=== PATIENT | female | born 1940 | race Caucasian/White ===

== ENCOUNTER 2023-03-02 11:10 | Inpatient (IN) | payer MEDICARE, OTHER ==
[~2023-03-02] VITALS: Ht 152.4 cm; Wt 56.2 kg
[2023-03-02 12:08] LABS: BASOPHILS % (AUTO) 0.5 % (0.0-2.0); EOSINOPHILS # (AUTO) 0.1 K/uL (0.0-0.7); EOSINOPHILS % (AUTO) 1.1 % (0.0-6.0); HEMATOCRIT 35 % (33-45); LYMPHOCYTES # (AUTO) 0.9 K/uL (0.8-4.8); MEAN CORPUSCULAR HEMOGLOBIN 30 PG (26.0-33.0); MEAN CORPUSCULAR HGB CONC 35 g/dl (31.0-36.0); MEAN CORPUSCULAR VOLUME 86 fL (82-100); MONOCYTES # (AUTO) 0.8 K/uL (0.1-1.30); MONOCYTES % (AUTO) 9.8 % (2.0-12.0); NEUTROPHILS # (AUTO) 6.5 K/uL (1.8-8.9); NEUTROPHILS % (AUTO) 77.6 % (43.0-81.0); PLATELET COUNT (AUTO) 344 K/uL (150-450); RED CELL DISTRIBUTION WIDTH 13.3 % (11.5-15.0); WHITE BLOOD COUNT (AUTO) 8.3 K/uL (4.3-11.0)
[2023-03-02 12:22] LABS: CARBON DIOXIDE 28 mmol/L (21-32); CHLORIDE 89 mmol/L (98-107); CREATININE 0.4 mg/dL (0.6-1.3); GLUCOSE 120 mg/dL (74-106); POTASSIUM 3.6 mmol/L (3.5-5.1); SODIUM SERUM 122 mmol/L (136-145); UREA NITROGEN, BLOOD 12 mg/dL (7-18)
[2023-03-02 12:29] LABS: ACETAMINOPHEN < 10 ug/ml (10-30); ALANINE AMINOTRANSFERASE 20 U/L (12-78); ALBUMIN 3.4 g/dL (3.4-5.0); ALKALINE PHOSPHATASE 107 U/L (46-116); ASPARTATE AMINOTRANSFERASE 14 U/L (15-37); BILIRUBIN,DIRECT 0.3 mg/dL (0.0-0.2); BILIRUBIN,TOTAL 0.8 mg/dL (0.2-1.0); TOTAL PROTEIN, SERUM 6.4 g/dL (6.4-8.2)
[2023-03-02 12:30] LABS: APPEARANCE,URINE TURBID (CLEAR); BILIRUBIN,URINE NEGATIVE (NEGATIVE); BLOOD, URINE 1+ Ery/uL (NEGATIVE); COLOR,URINE DARK YELLOW (YELLOW); KETONES,URINE NEGATIVE (NEGATIVE); LEUKOCYTE ESTERASE ,URINE 3+ (NEGATIVE); NITRITE, URINE POSITIVE (NEGATIVE); PROTEIN,URINE 1+ mg/dl (NEGATIVE); UGLUCOSE NEGATIVE (NEGATIVE)
[2023-03-02 12:31] LABS: ALCOHOL, BLOOD < 3 mg/dL (0-10); SALICYLATE < 3.0 mg/dL (2.8-20.0)
[2023-03-02 12:32] LABS: ADD URINE CULTURE YES; BACTERIA,URINE Moderate /HPF (None Seen); SQUAMOUS EPITHELIAL CELL,UR Rare /HPF (None Seen); WBC,URINE 51-80 /HPF (0-3)
[2023-03-02] MEDS ORDERED: GLUC3SPR NS (12:44)
[2023-03-02] MEDS ORDERED: MELA3TAB41 PO (12:44)
[2023-03-02] MEDS ORDERED: SUCR1TAB PO (12:44)
[2023-03-02] MEDS ORDERED: CHOL200059 PO (12:44)
[2023-03-02] MEDS ORDERED: DOCU100T2 PO (12:44)
[2023-03-02] MEDS ORDERED: LOSA1TAB36 PO (12:44)
[2023-03-02] MEDS ORDERED: DULO-79 PO (12:44)
[2023-03-02] MEDS ORDERED: DEXT38GE12 PO (12:44)
[2023-03-02] MEDS ORDERED: BISA10SU11 RC (12:44)
[2023-03-02] MEDS ORDERED: GEMTESA PO (12:44)
[2023-03-02] MEDS ORDERED: BUSP7.5T7 PO (12:44)
[2023-03-02] MEDS ORDERED: METF-440 PO (12:44)
[2023-03-02] MEDS ORDERED: METH1ADH6 TP (12:44)
[2023-03-02] MEDS ORDERED: CARV25TA2 PO (12:44)
[2023-03-02] MEDS ORDERED: APIX5TAB PO (12:44)
[2023-03-02] MEDS ORDERED: FEXO180T94 PO (12:44)
[2023-03-02] MEDS ORDERED: CALC-494 PO (12:44)
[2023-03-02] MEDS ORDERED: ACET-868 PO (12:44)
[2023-03-02 12:46] LABS: AMPHETAMINE, URINE NEGATIVE (NEGATIVE); BARBITURATE, URINE NEGATIVE (NEGATIVE); BENZODIAZEPINE, URINE NEGATIVE (NEGATIVE); CANNABINOID, URINE NEGATIVE (NEGATIVE); COCCAINE, URINE NEGATIVE (NEGATIVE); OPIATE, URINE NEGATIVE (NEGATIVE); PHENCYCLIDINE SCREEN,URINE NEGATIVE (NEGATIVE)
[2023-03-02] MEDS ORDERED: DILT-4 PO (12:47)
[2023-03-02] MEDS ORDERED: CEFTRIAXONE 1GM BAG (ER ONLY) 1 GM/50 ML PIGGYBACK IV ONE (13:30)
[2023-03-02] MEDS ORDERED: CEFTRIAXONE 1GM BAG (ER ONLY) 50 ML IV ONE ×2 (14:40→21:16)
[2023-03-02] MEDS ORDERED: IV NS 0.9% 1,000 ML BAG IV ONE (18:30)
[2023-03-02] MEDS ORDERED: Z GUARD REMEDY 4 OZ OINT TP PRN (19:00)
[2023-03-02] MEDS ORDERED: MAGNESIUM HYDROXIDE 30 ML UDC PO PRN (19:00)
[2023-03-02] MEDS ORDERED: ZOLPIDEM TARTRATE 5 MG TABLET PO PRN (19:00)
[2023-03-02] MEDS ORDERED: MAG HYDROX/AL HYDROX/SIMETH 30 ML UDC PO PRN (19:00)
[2023-03-02] MEDS ORDERED: ONDANSETRON HCL/PF 4 MG/2 ML VIAL IVP PRN (19:00)
[2023-03-02] MEDS ORDERED: GLUTOSE 15 G GEL..GM. PO SCH (19:30)
[2023-03-02] MEDS ORDERED: BISACODYL SUPP (10 MG) 10 MG/SUPP.RECT SUPP.RECT RC PRN (19:30)
[2023-03-02] MEDS ORDERED: GLUCAGON 3 MG NS SCH (19:30)
[2023-03-02] MEDS ORDERED: DEXTROSE 50%-WATER 50 ML DISP.SYRIN IV PRN (20:00)
[2023-03-02] MEDS ORDERED: CALCIUM CARBONATE 1,250 MG/5 ML UDC PO PRN (20:00)
[2023-03-02] MEDS ORDERED: CALCIUM CARBONATE 500 MG TAB.CHEW PO PRN (20:00)
[2023-03-02] MEDS ORDERED: LIDOCAINE 5% (PATCH) 1 EA PATCH TP PRN (20:00)
[2023-03-02] MEDS: CEFTRIAXONE 1 G in IV D5W 50 ML IV SCH (20:00)
[2023-03-02] MEDS: BLOOD SUGAR DIAGNOSTIC 1 EACH STRIP IN SCH (22:16)
[2023-03-03] MEDS: IV NS 0.9% 1,000 ML IV PRN ×2 (04:04→19:34)
[2023-03-03 05:44] LABS: HEMOGLOBIN 13.6 g/dL (11.5-14.8); MEAN CORPUSCULAR VOLUME 87 fL (82-100)
[2023-03-03 06:11] LABS: BASOPHILS # (AUTO) 0.1 K/uL (0.0-0.2); BASOPHILS % (AUTO) 0.7 % (0.0-2.0); EOSINOPHILS # (AUTO) 0.1 K/uL (0.0-0.7); HEMATOCRIT 39 % (33-45); LYMPHOCYTES % (AUTO) 10.5 % (20.0-44.0); MEAN CORPUSCULAR HEMOGLOBIN 30 PG (26.0-33.0); MEAN CORPUSCULAR HGB CONC 35 g/dl (31.0-36.0); MONOCYTES % (AUTO) 9.8 % (2.0-12.0); NEUTROPHILS # (AUTO) 7.6 K/uL (1.8-8.9); PLATELET COUNT (AUTO) 359 K/uL (150-450); RED BLOOD CELL COUNT(AUTO) 4.51 MIL/uL (4.0-5.2); RED CELL DISTRIBUTION WIDTH 13.2 % (11.5-15.0); WHITE BLOOD COUNT (AUTO) 9.7 K/uL (4.3-11.0)
[2023-03-03 06:13] LABS: CALCIUM, SERUM 8.8 mg/dL (8.5-10.1); CARBON DIOXIDE 25 mmol/L (21-32); CHLORIDE 92 mmol/L (98-107); CREATININE 0.3 mg/dL (0.6-1.3); GLUCOSE 136 mg/dL (74-106); MAGNESIUM 1.7 mg/dL (1.8-2.4); POTASSIUM 3.2 mmol/L (3.5-5.1); SODIUM SERUM 127 mmol/L (136-145); UREA NITROGEN, BLOOD 6 mg/dL (7-18)
[2023-03-03 06:23] LABS: THYROID STIMULATING HORMONE 1.122 uIU/mL (0.358-3.74)
[2023-03-03 08:10] VITALS: BP 160/78; TEMP 97.8; O2SAT 97
[2023-03-03] MEDS ORDERED: Medication Not On Formulary EA ([Gemtesa] 75 MG) PO SCH (09:00)
[2023-03-03] MEDS: BLOOD SUGAR DIAGNOSTIC 1 EACH STRIP IN SCH ×4 (09:28→21:56)
[2023-03-03] MEDS: cetrizine 10 MG TABLET PO SCH (09:51)
[2023-03-03] MEDS: CARVEDILOL 12.5 MG TABLET PO SCH ×2 (09:51→16:48)
[2023-03-03] MEDS: LOSARTAN POTASSIUM 50 MG TABLET PO SCH (09:52)
[2023-03-03] MEDS: METFORMIN 500 MG TABLET PO SCH ×3 (09:52→16:49)
[2023-03-03] MEDS: PANTOPRAZOLE 40 MG TABLET.DR PO SCH (09:53)
[2023-03-03] MEDS: SUCRALFATE 1 G TABLET PO SCH ×2 (09:58→16:49)
[2023-03-03] MEDS: CHOLECALCIFEROL 1,000 UNIT TABLET (VIT D3) PO SCH (09:58)
[2023-03-03] MEDS: busPIRone 5 MG TABLET PO SCH ×2 (09:58→16:48)
[2023-03-03] MEDS: DOCUSATE SODIUM 100 MG CAPSULE PO SCH ×2 (09:59→16:49)
[2023-03-03] MEDS ORDERED: MAGNESIUM OXIDE 400 MG TABLET PO ONE (10:00)
[2023-03-03] MEDS: DILTIAZEM HCL CD 240 MG PO SCH (10:00)
[2023-03-03] MEDS ORDERED: POTASSIUM CHLORIDE 20 MEQ POWDER PACKET PO ONE (10:00)
[2023-03-03] MEDS: APIXABAN 5 MG TABLET PO SCH (10:01)
[2023-03-03] MEDS: ESCITALOPRAM OXALATE (10 MG) 10 MG TABLET PO SCH (10:44)
[2023-03-03] MEDS: ACETAMINOPHEN 325 MG TABLET PO PRN (10:46)
[2023-03-03 12:00] VITALS: BP 134/85; TEMP 97.3; O2SAT 97
[2023-03-03] MEDS: INSULIN REGULAR, HUMAN 100 UNIT/ML 3 ML VIAL SQ PRN ×3 (12:13→21:57)
[2023-03-03] MEDS: CEFTRIAXONE 1 G in IV D5W 50 ML IV SCH (19:49)
[2023-03-03 20:00] VITALS: BP 130/80; TEMP 98; O2SAT 98
[2023-03-04] VITALS: BP 133/82; TEMP 98.2; O2SAT 98
[2023-03-04 02:16] LABS: APPEARANCE,URINE SLIGHTLY CLOUDY (CLEAR); BILIRUBIN,URINE NEGATIVE (NEGATIVE); BLOOD, URINE 1+ Ery/uL (NEGATIVE); COLOR,URINE YELLOW (YELLOW); KETONES,URINE NEGATIVE (NEGATIVE); LEUKOCYTE ESTERASE ,URINE 3+ (NEGATIVE); NITRITE, URINE NEGATIVE (NEGATIVE); PH,URINE 6.5 (5.0-8.0); PROTEIN,URINE TRACE mg/dl (NEGATIVE); UGLUCOSE NEGATIVE (NEGATIVE)
[2023-03-04 02:17] LABS: ADD URINE CULTURE YES; BACTERIA,URINE Few /HPF (None Seen); SQUAMOUS EPITHELIAL CELL,UR Rare /HPF (None Seen)
[2023-03-04 02:23] LABS: CREATININE, URINE 50.3 MG/DL (30.0-125.0)
[2023-03-04 05:00] VITALS: BP 136/80; TEMP 97.8; O2SAT 98
[2023-03-04 05:47] LABS: BASOPHILS # (AUTO) 0.1 K/uL (0.0-0.2); BASOPHILS % (AUTO) 0.8 % (0.0-2.0); EOSINOPHILS # (AUTO) 0.2 K/uL (0.0-0.7); EOSINOPHILS % (AUTO) 2.3 % (0.0-6.0); HEMATOCRIT 40 % (33-45); HEMOGLOBIN 13.7 g/dL (11.5-14.8); LYMPHOCYTES # (AUTO) 1.3 K/uL (0.8-4.8); LYMPHOCYTES % (AUTO) 15.6 % (20.0-44.0); MEAN CORPUSCULAR HEMOGLOBIN 30 PG (26.0-33.0); MEAN CORPUSCULAR HGB CONC 34 g/dl (31.0-36.0); MEAN CORPUSCULAR VOLUME 89 fL (82-100); MONOCYTES # (AUTO) 0.9 K/uL (0.1-1.30); MONOCYTES % (AUTO) 11.3 % (2.0-12.0); NEUTROPHILS # (AUTO) 5.7 K/uL (1.8-8.9); PLATELET COUNT (AUTO) 353 K/uL (150-450); RED BLOOD CELL COUNT(AUTO) 4.54 MIL/uL (4.0-5.2); RED CELL DISTRIBUTION WIDTH 13.5 % (11.5-15.0); WHITE BLOOD COUNT (AUTO) 8.1 K/uL (4.3-11.0)
[2023-03-04 06:14] LABS: THYROID STIMULATING HORMONE 0.833 uIU/mL (0.358-3.74); URIC ACID 1.8 mg/dL (2.6-7.2)
[2023-03-04 06:15] LABS: CARBON DIOXIDE 24 mmol/L (21-32); CHLORIDE 93 mmol/L (98-107); CREATININE 0.4 mg/dL (0.6-1.3); GLUCOSE 147 mg/dL (74-106); POTASSIUM 3.7 mmol/L (3.5-5.1); SODIUM SERUM 125 mmol/L (136-145); UREA NITROGEN, BLOOD 11 mg/dL (7-18)
[2023-03-04 06:25] LABS: ALANINE AMINOTRANSFERASE 16 U/L (12-78); ALBUMIN 3.2 g/dL (3.4-5.0); ALKALINE PHOSPHATASE 113 U/L (46-116); ASPARTATE AMINOTRANSFERASE 14 U/L (15-37); BILIRUBIN,TOTAL 0.7 mg/dL (0.2-1.0); TOTAL PROTEIN, SERUM 6.6 g/dL (6.4-8.2)
[2023-03-04] MEDS: BLOOD SUGAR DIAGNOSTIC 1 EACH STRIP IN SCH ×4 (06:49→22:00)
[2023-03-04] MEDS: INSULIN REGULAR, HUMAN 100 UNIT/ML 3 ML VIAL SQ PRN (06:51)
[2023-03-04] MEDS: SUCRALFATE 1 G TABLET PO SCH ×2 (10:04→18:48)
[2023-03-04] MEDS: cetrizine 10 MG TABLET PO SCH (10:04)
[2023-03-04] MEDS: DOCUSATE SODIUM 100 MG CAPSULE PO SCH ×2 (10:04→18:47)
[2023-03-04] MEDS: PANTOPRAZOLE 40 MG TABLET.DR PO SCH (10:04)
[2023-03-04] MEDS: METFORMIN 500 MG TABLET PO SCH ×3 (10:04→18:47)
[2023-03-04] MEDS: DILTIAZEM HCL CD 240 MG PO SCH (10:05)
[2023-03-04] MEDS: ESCITALOPRAM OXALATE (10 MG) 10 MG TABLET PO SCH (10:05)
[2023-03-04] MEDS: CHOLECALCIFEROL 1,000 UNIT TABLET (VIT D3) PO SCH (10:05)
[2023-03-04] MEDS: LOSARTAN POTASSIUM 50 MG TABLET PO SCH (10:06)
[2023-03-04] MEDS: busPIRone 5 MG TABLET PO SCH ×2 (10:07→18:48)
[2023-03-04] MEDS: CARVEDILOL 12.5 MG TABLET PO SCH ×2 (10:07→18:47)
[2023-03-04] MEDS: APIXABAN 5 MG TABLET PO SCH (10:08)
[2023-03-04] MEDS: ACETAMINOPHEN 325 MG TABLET PO PRN (12:33)
[2023-03-04 20:00] VITALS: BP_SYST 158; BP_SYST 73; BP_DIAS 44; BP_DIAS 90; TEMP 97.8; TEMP 98.1; O2SAT 98
[2023-03-04] MEDS: CEFTRIAXONE 1 G in IV D5W 50 ML IV SCH ×2 (20:00→20:24)
[2023-03-05] VITALS: BP 103/50; TEMP 97.8; O2SAT 97
[2023-03-05 07:23] LABS: BASOPHILS # (AUTO) 0.1 K/uL (0.0-0.2); BASOPHILS % (AUTO) 0.8 % (0.0-2.0); EOSINOPHILS # (AUTO) 0.2 K/uL (0.0-0.7); EOSINOPHILS % (AUTO) 2.7 % (0.0-6.0); HEMATOCRIT 38 % (33-45); HEMOGLOBIN 13.1 g/dL (11.5-14.8); LYMPHOCYTES # (AUTO) 1.1 K/uL (0.8-4.8); LYMPHOCYTES % (AUTO) 15.1 % (20.0-44.0); MEAN CORPUSCULAR HEMOGLOBIN 30 PG (26.0-33.0); MEAN CORPUSCULAR HGB CONC 35 g/dl (31.0-36.0); MEAN CORPUSCULAR VOLUME 87 fL (82-100); MONOCYTES # (AUTO) 0.7 K/uL (0.1-1.30); MONOCYTES % (AUTO) 9.8 % (2.0-12.0); NEUTROPHILS # (AUTO) 5.4 K/uL (1.8-8.9); NEUTROPHILS % (AUTO) 71.6 % (43.0-81.0); PLATELET COUNT (AUTO) 397 K/uL (150-450); RED BLOOD CELL COUNT(AUTO) 4.34 MIL/uL (4.0-5.2); RED CELL DISTRIBUTION WIDTH 13.7 % (11.5-15.0); WHITE BLOOD COUNT (AUTO) 7.6 K/uL (4.3-11.0)
[2023-03-05 07:59] LABS: CALCIUM, SERUM 8.9 mg/dL (8.5-10.1); CARBON DIOXIDE 23 mmol/L (21-32); CHLORIDE 95 mmol/L (98-107); CREATININE 0.5 mg/dL (0.6-1.3); GLUCOSE 136 mg/dL (74-106); MAGNESIUM 1.6 mg/dL (1.8-2.4); PHOSPHORUS 3.6 mg/dL (2.5-4.9); POTASSIUM 3.5 mmol/L (3.5-5.1); SODIUM SERUM 126 mmol/L (136-145); UREA NITROGEN, BLOOD 10 mg/dL (7-18)
[2023-03-05] MEDS: INSULIN REGULAR, HUMAN 100 UNIT/ML 3 ML VIAL SQ PRN (08:11)
[2023-03-05] MEDS: PANTOPRAZOLE 40 MG TABLET.DR PO SCH (08:21)
[2023-03-05] MEDS: APIXABAN 5 MG TABLET PO SCH (08:24)
[2023-03-05] MEDS: busPIRone 5 MG TABLET PO SCH ×2 (08:25→16:50)
[2023-03-05] MEDS: CHOLECALCIFEROL 1,000 UNIT TABLET (VIT D3) PO SCH (08:25)
[2023-03-05] MEDS: METFORMIN 500 MG TABLET PO SCH ×3 (08:26→16:50)
[2023-03-05] MEDS: CARVEDILOL 12.5 MG TABLET PO SCH ×2 (08:26→16:50)
[2023-03-05] MEDS: SUCRALFATE 1 G TABLET PO SCH ×2 (08:27→16:50)
[2023-03-05] MEDS: DILTIAZEM HCL CD 240 MG PO SCH (08:27)
[2023-03-05] MEDS: cetrizine 10 MG TABLET PO SCH (08:28)
[2023-03-05] MEDS: DOCUSATE SODIUM 100 MG CAPSULE PO SCH ×2 (08:28→16:50)
[2023-03-05] MEDS: LOSARTAN POTASSIUM 50 MG TABLET PO SCH (08:28)
[2023-03-05] MEDS: ESCITALOPRAM OXALATE (10 MG) 10 MG TABLET PO SCH (08:29)
[2023-03-05] MEDS ORDERED: MAGNESIUM OXIDE 400 MG TABLET PO ONE (08:30)
[2023-03-05] MEDS: BLOOD SUGAR DIAGNOSTIC 1 EACH STRIP IN SCH ×4 (08:50→21:35)
[2023-03-05] MEDS: IV NS 0.9% 1,000 ML IV PRN ×2 (09:05→20:11)
[2023-03-05 11:00] VITALS: BP 135/70
[2023-03-05] MEDS: ACETAMINOPHEN 325 MG TABLET PO PRN (14:35)
[2023-03-05 16:00] VITALS: BP 170/104; TEMP 97.7; O2SAT 98
[2023-03-05 19:00] VITALS: BP 94/68; TEMP 97.2; O2SAT 98
[2023-03-05] MEDS: CEFTRIAXONE 1 G in IV D5W 50 ML IV SCH (20:09)
[2023-03-06] MEDS: IV NS 0.9% 1,000 ML IV PRN ×2 (05:52→17:25)
[2023-03-06] MEDS: BLOOD SUGAR DIAGNOSTIC 1 EACH STRIP IN SCH ×5 (06:44→22:39)
[2023-03-06] MEDS: INSULIN REGULAR, HUMAN 100 UNIT/ML 3 ML VIAL SQ PRN (06:44)
[2023-03-06 07:17] LABS: BASOPHILS # (AUTO) 0.1 K/uL (0.0-0.2); BASOPHILS % (AUTO) 0.8 % (0.0-2.0); EOSINOPHILS # (AUTO) 0.1 K/uL (0.0-0.7); EOSINOPHILS % (AUTO) 1.9 % (0.0-6.0); HEMATOCRIT 41 % (33-45); HEMOGLOBIN 13.9 g/dL (11.5-14.8); LYMPHOCYTES # (AUTO) 1.1 K/uL (0.8-4.8); MEAN CORPUSCULAR HEMOGLOBIN 30 PG (26.0-33.0); MEAN CORPUSCULAR HGB CONC 34 g/dl (31.0-36.0); MEAN CORPUSCULAR VOLUME 88 fL (82-100); MONOCYTES # (AUTO) 0.8 K/uL (0.1-1.30); MONOCYTES % (AUTO) 10.3 % (2.0-12.0); NEUTROPHILS # (AUTO) 5.5 K/uL (1.8-8.9); PLATELET COUNT (AUTO) 369 K/uL (150-450); RED BLOOD CELL COUNT(AUTO) 4.68 MIL/uL (4.0-5.2); RED CELL DISTRIBUTION WIDTH 13.6 % (11.5-15.0); WHITE BLOOD COUNT (AUTO) 7.6 K/uL (4.3-11.0)
[2023-03-06] MEDS: PANTOPRAZOLE 40 MG TABLET.DR PO SCH (07:27)
[2023-03-06 08:01] LABS: CALCIUM, SERUM 9.2 mg/dL (8.5-10.1); CARBON DIOXIDE 25 mmol/L (21-32); CHLORIDE 95 mmol/L (98-107); CREATININE 0.3 mg/dL (0.6-1.3); GLUCOSE 137 mg/dL (74-106); MAGNESIUM 1.9 mg/dL (1.8-2.4); PHOSPHORUS 3.6 mg/dL (2.5-4.9); POTASSIUM 3.5 mmol/L (3.5-5.1); SODIUM SERUM 130 mmol/L (136-145); UREA NITROGEN, BLOOD 7 mg/dL (7-18)
[2023-03-06] MEDS: CARVEDILOL 12.5 MG TABLET PO SCH ×2 (08:11→16:14)
[2023-03-06] MEDS: ESCITALOPRAM OXALATE (10 MG) 10 MG TABLET PO SCH (08:12)
[2023-03-06] MEDS: CHOLECALCIFEROL 1,000 UNIT TABLET (VIT D3) PO SCH (08:12)
[2023-03-06] MEDS: SUCRALFATE 1 G TABLET PO SCH ×2 (08:12→16:13)
[2023-03-06] MEDS: cetrizine 10 MG TABLET PO SCH (08:12)
[2023-03-06] MEDS: LOSARTAN POTASSIUM 50 MG TABLET PO SCH (08:12)
[2023-03-06] MEDS: METFORMIN 500 MG TABLET PO SCH ×3 (08:12→16:13)
[2023-03-06] MEDS: busPIRone 5 MG TABLET PO SCH ×2 (08:12→16:13)
[2023-03-06] MEDS: DOCUSATE SODIUM 100 MG CAPSULE PO SCH ×2 (08:13→16:14)
[2023-03-06] MEDS: DILTIAZEM HCL CD 240 MG PO SCH (08:13)
[2023-03-06] MEDS: APIXABAN 5 MG TABLET PO SCH (08:14)
[2023-03-06 08:29] VITALS: BP 172/102; TEMP 97.9; O2SAT 95
[2023-03-06] MEDS ORDERED: LORAZEPAM INJ 2 MG/ML VIAL IM ONE (12:00)
[2023-03-06 16:09] VITALS: BP 92/68; TEMP 98; O2SAT 95
[2023-03-06 20:00] VITALS: BP 158/91; TEMP 97.3; O2SAT 99
[2023-03-06] MEDS: CEFTRIAXONE 1 G in IV D5W 50 ML IV SCH (20:16)
[2023-03-07] MEDS: IV NS 0.9% 1,000 ML IV PRN (05:27)
[2023-03-07] MEDS: BLOOD SUGAR DIAGNOSTIC 1 EACH STRIP IN SCH ×3 (06:49→12:00)
[2023-03-07 08:00] VITALS: BP 148/98; TEMP 97.6; O2SAT 94
[2023-03-07] MEDS: DOCUSATE SODIUM 100 MG CAPSULE PO SCH (08:16)
[2023-03-07] MEDS: PANTOPRAZOLE 40 MG TABLET.DR PO SCH (08:16)
[2023-03-07] MEDS: SUCRALFATE 1 G TABLET PO SCH (08:16)
[2023-03-07] MEDS: ESCITALOPRAM OXALATE (10 MG) 10 MG TABLET PO SCH (08:17)
[2023-03-07] MEDS: CHOLECALCIFEROL 1,000 UNIT TABLET (VIT D3) PO SCH (08:17)
[2023-03-07] MEDS: busPIRone 5 MG TABLET PO SCH (08:17)
[2023-03-07] MEDS: DILTIAZEM HCL CD 240 MG PO SCH (08:17)
[2023-03-07] MEDS: LOSARTAN POTASSIUM 50 MG TABLET PO SCH (08:18)
[2023-03-07] MEDS: CARVEDILOL 12.5 MG TABLET PO SCH (08:18)
[2023-03-07] MEDS: cetrizine 10 MG TABLET PO SCH (08:18)
[2023-03-07] MEDS: METFORMIN 500 MG TABLET PO SCH ×2 (08:18→12:33)
[2023-03-07] MEDS: APIXABAN 5 MG TABLET PO SCH (08:19)
[2023-03-07 10:00] VITALS: BP 148/98; TEMP 97.6; O2SAT 94
[2023-03-07 16:00] VITALS: BP 165/105; TEMP 99.5; O2SAT 97
== END 2023-03-07 18:11 | DRG 640 ==
LOC: ER 11:20 → GPS 18:05 → TELE 03-03 07:29 → MED 03-04 10:13
PROVIDERS: ADMIT Student in an Organized Health Care Education/Training Program; ATTEND Student in an Organized Health Care Education/Training Program
DX: E87.1 Hypo-osmolality and hyponatremia (principal); G93.41 Metabolic encephalopathy; N39.0 Urinary tract infection, site not specified; F03.94 Unspecified dementia, unspecified severity, with anxiety; F03.93 Unspecified dementia, unspecified severity, with mood disturbance; F29 Unspecified psychosis not due to a substance or known physiological condition; Z86.73 Personal history of transient ischemic attack (TIA), and cerebral infarction without residual deficits; I25.10 Atherosclerotic heart disease of native coronary artery without angina pectoris; M81.0 Age-related osteoporosis without current pathological fracture; I10 Essential (primary) hypertension; I48.91 Unspecified atrial fibrillation; J44.9 Chronic obstructive pulmonary disease, unspecified; Z79.01 Long term (current) use of anticoagulants; Z79.84 Long term (current) use of oral hypoglycemic drugs; E11.9 Type 2 diabetes mellitus without complications; F32.A Depression, unspecified; F41.9 Anxiety disorder, unspecified; B96.20 Unspecified Escherichia coli [E. coli] as the cause of diseases classified elsewhere; E86.1 Hypovolemia
CPT/HCPCS: 36415; 80048-TC; 80053-TC; 80076-TC; 81001; 82570-TC; 82962-TC; 83735-TC; 84100-TC; 84295-TC; 84300-TC; 84443-TC; 84550-TC; 85025-TC; 87081-TC; 87086-TC; 97110-TC; 97116-TC; 97530-TC; A4223; G0378; G0480; J0696; J1815; J2060; J2405; J7030; J7060

== ENCOUNTER 2023-03-07 18:32 | Inpatient (IN) | payer MEDICARE, OTHER ==
[~2023-03-07] VITALS: Ht 162.6 cm; Wt 53.5 kg
[~2023-03-07 18:32] MED LIST: ACET-868 PO; APIX5TAB PO; BISA10SU11 RC; BUSP7.5T7 PO; CALC-494 PO; CARV25TA2 PO; CHOL200059 PO; DEXT38GE12 PO; DILT-4 PO; DOCU100T2 PO; DULO-79 PO; FEXO180T94 PO; GEMTESA PO; GLUC3SPR NS; LOSA1TAB36 PO; MELA3TAB41 PO; METF-440 PO; METH1ADH6 TP; SUCR1TAB PO
[2023-03-07 20:00] VITALS: BP 132/100; TEMP 98; O2SAT 97
[2023-03-07] MEDS ORDERED: TEMAZEPAM 7.5 MG CAPSULE PO PRN (20:00)
[2023-03-07] MEDS ORDERED: clonazePAM 0.5 MG TABLET PO PRN (20:00)
[2023-03-07] MEDS ORDERED: BLOOD SUGAR DIAGNOSTIC 1 EACH STRIP IN ONE (21:30)
[2023-03-07] MEDS ORDERED: MAGNESIUM HYDROXIDE 30 ML UDC PO PRN (21:30)
[2023-03-07] MEDS ORDERED: MAG HYDROX/AL HYDROX/SIMETH 30 ML UDC PO PRN (21:30)
[2023-03-07] MEDS ORDERED: ACETAMINOPHEN 325 MG TABLET PO PRN (21:30)
[2023-03-08 11:42] LABS: CHOLESTEROL 163 mg/dL (<200); HDL CHOLESTEROL 66 mg/dL (40-60); LDL 82 mg/dL (0-99); TRIGLYCERIDES 77 mg/dL (30-150)
[2023-03-08 11:46] LABS: ALANINE AMINOTRANSFERASE 24 U/L (12-78); ALBUMIN 3.4 g/dL (3.4-5.0); ALKALINE PHOSPHATASE 117 U/L (46-116); ASPARTATE AMINOTRANSFERASE 17 U/L (15-37); BILIRUBIN,TOTAL 0.6 mg/dL (0.2-1.0); CALCIUM, SERUM 9.5 mg/dL (8.5-10.1); CARBON DIOXIDE 25 mmol/L (21-32); CHLORIDE 92 mmol/L (98-107); CREATININE 0.5 mg/dL (0.6-1.3); GLUCOSE 160 mg/dL (74-106); POTASSIUM 3.6 mmol/L (3.5-5.1); SODIUM SERUM 124 mmol/L (136-145); TOTAL PROTEIN, SERUM 6.7 g/dL (6.4-8.2); UREA NITROGEN, BLOOD 13 mg/dL (7-18)
[2023-03-08] MEDS ORDERED: GLUTOSE 15 G GEL..GM. PO SCH (15:30)
[2023-03-08] MEDS ORDERED: METHYL SALICYLATE TP PRN (15:30)
[2023-03-08] MEDS ORDERED: BISACODYL SUPP (10 MG) 10 MG/SUPP.RECT SUPP.RECT RC PRN (15:30)
[2023-03-08] MEDS ORDERED: MENTHOL TP PRN (15:30)
[2023-03-08 16:00] VITALS: BP 175/106; TEMP 98; O2SAT 98
[2023-03-08] MEDS: SUCRALFATE 1 G TABLET PO SCH ×2 (16:23→16:34)
[2023-03-08] MEDS: DOCUSATE SODIUM 100 MG CAPSULE PO SCH ×2 (16:24→16:34)
[2023-03-08] MEDS: CARVEDILOL 12.5 MG TABLET PO SCH ×2 (16:24→16:35)
[2023-03-08] MEDS: METFORMIN 500 MG TABLET PO SCH ×2 (16:25→16:35)
[2023-03-08] MEDS ORDERED: DILTIAZEM HCL CD 240 MG PO SCH (16:30)
[2023-03-08] MEDS ORDERED: CALCIUM CARBONATE 500 MG TAB.CHEW PO PRN (16:30)
[2023-03-08 20:14] VITALS: BP 134/96; TEMP 98.3; O2SAT 98
[2023-03-09 08:00] VITALS: BP 146/95; TEMP 98.7; O2SAT 98
[2023-03-09] MEDS: CHOLECALCIFEROL 1,000 UNIT TABLET (VIT D3) PO SCH ×2 (08:20→09:00)
[2023-03-09] MEDS: LOSARTAN POTASSIUM 50 MG TABLET PO SCH ×2 (08:21→09:00)
[2023-03-09] MEDS: METFORMIN 500 MG TABLET PO SCH ×5 (08:21→17:00)
[2023-03-09] MEDS: DOCUSATE SODIUM 100 MG CAPSULE PO SCH ×3 (08:21→17:00)
[2023-03-09] MEDS: CARVEDILOL 12.5 MG TABLET PO SCH ×3 (08:23→17:00)
[2023-03-09] MEDS: APIXABAN 5 MG TABLET PO SCH ×2 (08:23→09:00)
[2023-03-09] MEDS: ESCITALOPRAM OXALATE (10 MG) 10 MG TABLET PO SCH ×2 (08:30→09:00)
[2023-03-09] MEDS: SUCRALFATE 1 G TABLET PO SCH ×3 (08:30→17:00)
[2023-03-09] MEDS ORDERED: DEXTROSE 50%-WATER 50 ML DISP.SYRIN IV PRN (08:30)
[2023-03-09] MEDS ORDERED: FEXOFENADINE HCL (60 MG) 60 MG TABLET PO SCH (09:00)
[2023-03-09] MEDS ORDERED: LOSARTAN/HCTZ 50-12.5MG/ 1 EA TABLET PO SCH (09:00)
[2023-03-09] MEDS ORDERED: Medication Not On Formulary EA ([Gemtesa] 75 MG) PO SCH (09:00)
[2023-03-09] MEDS ORDERED: DILTIAZEM HCL CD 240 MG PO SCH (09:00)
[2023-03-09 19:59] VITALS: BP 138/87; TEMP 97.9; O2SAT 95
[2023-03-09] MEDS: OLANZAPINE 2.5 MG TABLET PO SCH (22:00)
[2023-03-10 07:09] LABS: CALCIUM, SERUM 9.5 mg/dL (8.5-10.1); CARBON DIOXIDE 27 mmol/L (21-32); CHLORIDE 96 mmol/L (98-107); CREATININE 0.5 mg/dL (0.6-1.3); GLUCOSE 136 mg/dL (74-106); MAGNESIUM 2.2 mg/dL (1.8-2.4); PHOSPHORUS 4.6 mg/dL (2.5-4.9); POTASSIUM 4.2 mmol/L (3.5-5.1); SODIUM SERUM 130 mmol/L (136-145); UREA NITROGEN, BLOOD 13 mg/dL (7-18)
[2023-03-10 07:18] LABS: THYROID STIMULATING HORMONE 1.652 uIU/mL (0.358-3.74); URIC ACID 3.4 mg/dL (2.6-7.2)
[2023-03-10 08:00] VITALS: BP 149/95; TEMP 97.8; O2SAT 98
[2023-03-10] MEDS: LOSARTAN POTASSIUM 50 MG TABLET PO SCH (09:00)
[2023-03-10] MEDS: CARVEDILOL 12.5 MG TABLET PO SCH ×2 (09:00→17:00)
[2023-03-10] MEDS: METFORMIN 500 MG TABLET PO SCH ×3 (09:00→17:00)
[2023-03-10] MEDS: CHOLECALCIFEROL 1,000 UNIT TABLET (VIT D3) PO SCH (09:00)
[2023-03-10] MEDS: APIXABAN 5 MG TABLET PO SCH (09:00)
[2023-03-10] MEDS: DOCUSATE SODIUM 100 MG CAPSULE PO SCH ×2 (09:00→17:00)
[2023-03-10] MEDS: ESCITALOPRAM OXALATE (10 MG) 10 MG TABLET PO SCH (09:00)
[2023-03-10] MEDS: SUCRALFATE 1 G TABLET PO SCH ×2 (09:00→17:00)
[2023-03-10] MEDS: Z GUARD REMEDY 4 OZ OINT TP SCH (18:01)
[2023-03-10 20:00] VITALS: BP 138/79; TEMP 97.6; O2SAT 97
[2023-03-10] MEDS: OLANZAPINE 2.5 MG TABLET PO SCH (22:00)
[2023-03-11] MEDS: DOCUSATE SODIUM 100 MG CAPSULE PO SCH ×2 (09:00→17:00)
[2023-03-11] MEDS: SUCRALFATE 1 G TABLET PO SCH ×2 (09:00→17:00)
[2023-03-11] MEDS: METFORMIN 500 MG TABLET PO SCH ×3 (09:00→17:00)
[2023-03-11] MEDS: APIXABAN 5 MG TABLET PO SCH (09:00)
[2023-03-11] MEDS: ESCITALOPRAM OXALATE (10 MG) 10 MG TABLET PO SCH (09:00)
[2023-03-11] MEDS: CHOLECALCIFEROL 1,000 UNIT TABLET (VIT D3) PO SCH (09:00)
[2023-03-11] MEDS: CARVEDILOL 12.5 MG TABLET PO SCH ×2 (09:00→17:00)
[2023-03-11] MEDS: LOSARTAN POTASSIUM 50 MG TABLET PO SCH (09:00)
[2023-03-11] MEDS: Z GUARD REMEDY 4 OZ OINT TP SCH ×2 (09:14→17:43)
[2023-03-11 16:00] VITALS: BP 127/75; TEMP 98; O2SAT 97
[2023-03-11 20:43] VITALS: BP 138/87; TEMP 98; O2SAT 98
[2023-03-11] MEDS: OLANZAPINE 2.5 MG TABLET PO SCH (22:00)
[2023-03-12 08:00] VITALS: BP 160/90; TEMP 98.6; O2SAT 98
[2023-03-12] MEDS: LOSARTAN POTASSIUM 50 MG TABLET PO SCH (09:00)
[2023-03-12] MEDS: CHOLECALCIFEROL 1,000 UNIT TABLET (VIT D3) PO SCH (09:00)
[2023-03-12] MEDS: DOCUSATE SODIUM 100 MG CAPSULE PO SCH ×2 (09:00→17:00)
[2023-03-12] MEDS: ESCITALOPRAM OXALATE (10 MG) 10 MG TABLET PO SCH (09:00)
[2023-03-12] MEDS: SUCRALFATE 1 G TABLET PO SCH ×2 (09:00→17:00)
[2023-03-12] MEDS: METFORMIN 500 MG TABLET PO SCH ×3 (09:00→17:00)
[2023-03-12] MEDS: APIXABAN 5 MG TABLET PO SCH (09:00)
[2023-03-12] MEDS: CARVEDILOL 12.5 MG TABLET PO SCH ×2 (09:00→17:00)
[2023-03-12] MEDS: Z GUARD REMEDY 4 OZ OINT TP SCH ×2 (09:08→17:21)
[2023-03-12] MEDS ORDERED: CLONIDINE HCL 0.1MG/24H PTWK 1 EA PATCH TD SCH (13:30)
[2023-03-12 15:10] LABS: BASOPHILS # (AUTO) 0.1 K/uL (0.0-0.2); BASOPHILS % (AUTO) 0.8 % (0.0-2.0); EOSINOPHILS # (AUTO) 0.1 K/uL (0.0-0.7); EOSINOPHILS % (AUTO) 1.3 % (0.0-6.0); HEMATOCRIT 40 % (33-45); HEMOGLOBIN 13.7 g/dL (11.5-14.8); LYMPHOCYTES # (AUTO) 1.7 K/uL (0.8-4.8); LYMPHOCYTES % (AUTO) 15.9 % (20.0-44.0); MEAN CORPUSCULAR HEMOGLOBIN 30 PG (26.0-33.0); MEAN CORPUSCULAR HGB CONC 34 g/dl (31.0-36.0); MEAN CORPUSCULAR VOLUME 88 fL (82-100); MONOCYTES # (AUTO) 1.3 K/uL (0.1-1.30); MONOCYTES % (AUTO) 12.1 % (2.0-12.0); NEUTROPHILS # (AUTO) 7.7 K/uL (1.8-8.9); NEUTROPHILS % (AUTO) 69.9 % (43.0-81.0); PLATELET COUNT (AUTO) 418 K/uL (150-450); RED BLOOD CELL COUNT(AUTO) 4.54 MIL/uL (4.0-5.2); RED CELL DISTRIBUTION WIDTH 14.3 % (11.5-15.0); WHITE BLOOD COUNT (AUTO) 10.9 K/uL (4.3-11.0)
[2023-03-12 15:37] LABS: ALBUMIN 3.2 g/dL (3.4-5.0); BILIRUBIN,TOTAL 0.8 mg/dL (0.2-1.0); CALCIUM, SERUM 9.4 mg/dL (8.5-10.1); CREATININE 0.6 mg/dL (0.6-1.3); MAGNESIUM 2.2 mg/dL (1.8-2.4); PHOSPHORUS 4.3 mg/dL (2.5-4.9); POTASSIUM 4.5 mmol/L (3.5-5.1); TOTAL PROTEIN, SERUM 6.5 g/dL (6.4-8.2)
[2023-03-12 16:00] VITALS: BP 155/118; TEMP 97.7; O2SAT 97
[2023-03-12 20:00] VITALS: BP 152/88; TEMP 97.6; O2SAT 98
[2023-03-12] MEDS: OLANZAPINE 2.5 MG TABLET PO SCH (21:35)
[2023-03-13 06:49] LABS: CALCIUM, SERUM 9.3 mg/dL (8.5-10.1); CARBON DIOXIDE 28 mmol/L (21-32); CHLORIDE 99 mmol/L (98-107); CREATININE 0.5 mg/dL (0.6-1.3); GLUCOSE 134 mg/dL (74-106); MAGNESIUM 2.2 mg/dL (1.8-2.4); PHOSPHORUS 3.9 mg/dL (2.5-4.9); POTASSIUM 4.4 mmol/L (3.5-5.1); SODIUM SERUM 135 mmol/L (136-145); UREA NITROGEN, BLOOD 14 mg/dL (7-18)
[2023-03-13 06:55] LABS: URIC ACID 4.2 mg/dL (2.6-7.2)
[2023-03-13] MEDS: GLUCERNA SHAKE 237 ML CAN PO SCH ×2 (08:42→17:00)
[2023-03-13] MEDS: DOCUSATE SODIUM 100 MG CAPSULE PO SCH ×2 (09:00→17:00)
[2023-03-13] MEDS: CARVEDILOL 12.5 MG TABLET PO SCH ×2 (09:00→17:00)
[2023-03-13] MEDS: LOSARTAN POTASSIUM 50 MG TABLET PO SCH (09:00)
[2023-03-13] MEDS: SUCRALFATE 1 G TABLET PO SCH ×2 (09:00→17:00)
[2023-03-13] MEDS: METFORMIN 500 MG TABLET PO SCH ×3 (09:00→17:00)
[2023-03-13] MEDS: APIXABAN 5 MG TABLET PO SCH (09:00)
[2023-03-13] MEDS: Z GUARD REMEDY 4 OZ OINT TP SCH ×2 (09:00→17:00)
[2023-03-13] MEDS: ESCITALOPRAM OXALATE (10 MG) 10 MG TABLET PO SCH (09:00)
[2023-03-13] MEDS: CHOLECALCIFEROL 1,000 UNIT TABLET (VIT D3) PO SCH (09:00)
[2023-03-13] MEDS: CLONIDINE HCL 0.2MG/24H PTWK 1 EA PATCH TD SCH (14:33)
[2023-03-13 15:55] VITALS: BP 154/115; TEMP 97.7; O2SAT 97
[2023-03-13 20:14] VITALS: BP 143/98; TEMP 97.7; O2SAT 98
[2023-03-13] MEDS: OLANZAPINE 2.5 MG TABLET PO SCH (21:06)
[2023-03-14 08:00] VITALS: BP 155/115; TEMP 98.6; O2SAT 97
[2023-03-14] MEDS: CARVEDILOL 12.5 MG TABLET PO SCH ×2 (08:38→16:30)
[2023-03-14] MEDS: LOSARTAN POTASSIUM 50 MG TABLET PO SCH (08:38)
[2023-03-14] MEDS: GLUCERNA SHAKE 237 ML CAN PO SCH ×2 (08:38→16:30)
[2023-03-14] MEDS: SUCRALFATE 1 G TABLET PO SCH ×2 (08:38→16:30)
[2023-03-14] MEDS: DOCUSATE SODIUM 100 MG CAPSULE PO SCH ×2 (08:38→16:30)
[2023-03-14] MEDS: METFORMIN 500 MG TABLET PO SCH ×3 (08:39→16:30)
[2023-03-14] MEDS: CHOLECALCIFEROL 1,000 UNIT TABLET (VIT D3) PO SCH (08:39)
[2023-03-14] MEDS: ESCITALOPRAM OXALATE (10 MG) 10 MG TABLET PO SCH (08:39)
[2023-03-14] MEDS: Z GUARD REMEDY 4 OZ OINT TP SCH ×2 (08:39→16:30)
[2023-03-14] MEDS: APIXABAN 5 MG TABLET PO SCH (08:39)
[2023-03-14 16:00] VITALS: BP 117/69; TEMP 97.8; O2SAT 97
[2023-03-14 20:10] VITALS: BP 154/110; TEMP 97.5; O2SAT 98
[2023-03-14] MEDS: OLANZAPINE 2.5 MG TABLET PO SCH (22:00)
[2023-03-15 08:00] VITALS: BP 107/79; TEMP 97.9; O2SAT 100
[2023-03-15] MEDS: SUCRALFATE 1 G TABLET PO SCH ×2 (08:55→16:26)
[2023-03-15] MEDS: GLUCERNA SHAKE 237 ML CAN PO SCH ×2 (08:55→16:26)
[2023-03-15] MEDS: CARVEDILOL 12.5 MG TABLET PO SCH ×2 (08:56→16:26)
[2023-03-15] MEDS: LOSARTAN POTASSIUM 50 MG TABLET PO SCH (08:56)
[2023-03-15] MEDS: DOCUSATE SODIUM 100 MG CAPSULE PO SCH ×2 (08:56→16:26)
[2023-03-15] MEDS: CHOLECALCIFEROL 1,000 UNIT TABLET (VIT D3) PO SCH (08:57)
[2023-03-15] MEDS: ESCITALOPRAM OXALATE (10 MG) 10 MG TABLET PO SCH (08:57)
[2023-03-15] MEDS: APIXABAN 5 MG TABLET PO SCH (08:57)
[2023-03-15] MEDS: Z GUARD REMEDY 4 OZ OINT TP SCH ×2 (08:57→16:26)
[2023-03-15] MEDS: METFORMIN 500 MG TABLET PO SCH ×3 (08:57→16:26)
[2023-03-15 16:00] VITALS: BP 162/101; TEMP 97.9; O2SAT 99
[2023-03-15] MEDS: OLANZAPINE 2.5 MG TABLET PO SCH (21:06)
[2023-03-16 08:00] VITALS: BP 112/94; TEMP 97.8; O2SAT 98
[2023-03-16] MEDS: GLUCERNA SHAKE 237 ML CAN PO SCH ×2 (08:00→16:18)
[2023-03-16] MEDS: CARVEDILOL 12.5 MG TABLET PO SCH ×2 (09:00→16:19)
[2023-03-16] MEDS: APIXABAN 5 MG TABLET PO SCH (09:00)
[2023-03-16] MEDS: ESCITALOPRAM OXALATE (10 MG) 10 MG TABLET PO SCH (09:00)
[2023-03-16] MEDS: DOCUSATE SODIUM 100 MG CAPSULE PO SCH ×2 (09:00→16:17)
[2023-03-16] MEDS: METFORMIN 500 MG TABLET PO SCH ×3 (09:00→16:18)
[2023-03-16] MEDS: LOSARTAN POTASSIUM 50 MG TABLET PO SCH (09:00)
[2023-03-16] MEDS: CHOLECALCIFEROL 1,000 UNIT TABLET (VIT D3) PO SCH (09:00)
[2023-03-16] MEDS: SUCRALFATE 1 G TABLET PO SCH ×2 (09:00→16:17)
[2023-03-16] MEDS: Z GUARD REMEDY 4 OZ OINT TP SCH ×2 (09:18→16:19)
[2023-03-16] MEDS: OLANZAPINE 2.5 MG TABLET PO SCH ×2 (14:30→17:00)
[2023-03-16] MEDS: HALOPERIDOL LACTATE INJ 5 MG/ML VIAL IM PRN ×3 (15:20→17:42)
[2023-03-16 16:00] VITALS: BP 143/85; TEMP 98.1; O2SAT 98
[2023-03-16 20:07] VITALS: BP 142/81; TEMP 98.6; O2SAT 95
[2023-03-17 08:00] VITALS: BP 130/93; TEMP 97.9; O2SAT 97
[2023-03-17] MEDS: GLUCERNA SHAKE 237 ML CAN PO SCH ×2 (08:00→17:00)
[2023-03-17] MEDS: SUCRALFATE 1 G TABLET PO SCH ×2 (08:56→17:00)
[2023-03-17] MEDS: DOCUSATE SODIUM 100 MG CAPSULE PO SCH ×2 (08:56→17:00)
[2023-03-17] MEDS: LOSARTAN POTASSIUM 50 MG TABLET PO SCH (08:56)
[2023-03-17] MEDS: CARVEDILOL 12.5 MG TABLET PO SCH ×2 (08:56→17:00)
[2023-03-17] MEDS: APIXABAN 5 MG TABLET PO SCH (08:57)
[2023-03-17] MEDS: METFORMIN 500 MG TABLET PO SCH ×3 (08:57→17:00)
[2023-03-17] MEDS: ESCITALOPRAM OXALATE (10 MG) 10 MG TABLET PO SCH (08:57)
[2023-03-17] MEDS: CHOLECALCIFEROL 1,000 UNIT TABLET (VIT D3) PO SCH (08:57)
[2023-03-17] MEDS: OLANZAPINE 2.5 MG TABLET PO SCH ×2 (08:57→17:00)
[2023-03-17] MEDS: HALOPERIDOL LACTATE INJ 5 MG/ML VIAL IM PRN ×2 (08:58→17:15)
[2023-03-17] MEDS: Z GUARD REMEDY 4 OZ OINT TP SCH ×2 (09:52→17:13)
[2023-03-17 16:00] VITALS: BP 142/115; TEMP 97.5; O2SAT 98
[2023-03-17 18:05] VITALS: BP 137/76
[2023-03-17 20:00] VITALS: BP 148/91; TEMP 98.3; O2SAT 100
[2023-03-18 08:00] VITALS: BP 156/97; TEMP 98; O2SAT 92
[2023-03-18] MEDS: GLUCERNA SHAKE 237 ML CAN PO SCH ×2 (08:00→17:00)
[2023-03-18] MEDS: CHOLECALCIFEROL 1,000 UNIT TABLET (VIT D3) PO SCH (09:00)
[2023-03-18] MEDS: LOSARTAN POTASSIUM 50 MG TABLET PO SCH (09:00)
[2023-03-18] MEDS: DOCUSATE SODIUM 100 MG CAPSULE PO SCH ×2 (09:00→17:00)
[2023-03-18] MEDS: APIXABAN 5 MG TABLET PO SCH (09:00)
[2023-03-18] MEDS: OLANZAPINE 2.5 MG TABLET PO SCH ×2 (09:00→17:00)
[2023-03-18] MEDS: ESCITALOPRAM OXALATE (10 MG) 10 MG TABLET PO SCH (09:00)
[2023-03-18] MEDS: METFORMIN 500 MG TABLET PO SCH ×3 (09:00→17:00)
[2023-03-18] MEDS: CARVEDILOL 12.5 MG TABLET PO SCH ×2 (09:00→17:00)
[2023-03-18] MEDS: SUCRALFATE 1 G TABLET PO SCH ×2 (09:00→17:00)
[2023-03-18] MEDS: HALOPERIDOL LACTATE INJ 5 MG/ML VIAL IM PRN ×2 (09:21→17:34)
[2023-03-18] MEDS: Z GUARD REMEDY 4 OZ OINT TP SCH ×2 (09:32→17:33)
[2023-03-18 16:00] VITALS: BP 128/94; TEMP 97.1; O2SAT 100
[2023-03-18 20:00] VITALS: BP 140/89; TEMP 98.1; O2SAT 97
[2023-03-19 08:00] VITALS: BP 147/84; TEMP 98.8; O2SAT 95
[2023-03-19] MEDS: GLUCERNA SHAKE 237 ML CAN PO SCH ×2 (08:00→16:48)
[2023-03-19] MEDS: SUCRALFATE 1 G TABLET PO SCH ×3 (08:53→16:52)
[2023-03-19] MEDS: DOCUSATE SODIUM 100 MG CAPSULE PO SCH ×3 (08:53→16:52)
[2023-03-19] MEDS: CARVEDILOL 12.5 MG TABLET PO SCH ×3 (08:53→16:52)
[2023-03-19] MEDS: LOSARTAN POTASSIUM 50 MG TABLET PO SCH (08:54)
[2023-03-19] MEDS: OLANZAPINE 2.5 MG TABLET PO SCH ×3 (08:55→16:53)
[2023-03-19] MEDS: APIXABAN 5 MG TABLET PO SCH (08:55)
[2023-03-19] MEDS: CHOLECALCIFEROL 1,000 UNIT TABLET (VIT D3) PO SCH (08:55)
[2023-03-19] MEDS: METFORMIN 500 MG TABLET PO SCH ×4 (08:55→16:53)
[2023-03-19] MEDS: ESCITALOPRAM OXALATE (10 MG) 10 MG TABLET PO SCH (08:55)
[2023-03-19] MEDS: Z GUARD REMEDY 4 OZ OINT TP SCH ×2 (08:56→16:46)
[2023-03-19] MEDS: HALOPERIDOL LACTATE INJ 5 MG/ML VIAL IM PRN ×2 (09:02→17:06)
[2023-03-19 16:00] VITALS: BP 147/92; TEMP 97.6; O2SAT 98
[2023-03-19 20:06] VITALS: BP 140/86; TEMP 98.6; O2SAT 95
[2023-03-20 08:00] VITALS: BP 134/89; TEMP 97.9; O2SAT 97
[2023-03-20] MEDS: GLUCERNA SHAKE 237 ML CAN PO SCH ×2 (08:39→17:00)
[2023-03-20] MEDS: CARVEDILOL 12.5 MG TABLET PO SCH ×2 (09:00→17:00)
[2023-03-20] MEDS: LOSARTAN POTASSIUM 50 MG TABLET PO SCH (09:00)
[2023-03-20] MEDS: SUCRALFATE 1 G TABLET PO SCH ×2 (09:00→17:00)
[2023-03-20] MEDS: APIXABAN 5 MG TABLET PO SCH (09:00)
[2023-03-20] MEDS: CHOLECALCIFEROL 1,000 UNIT TABLET (VIT D3) PO SCH (09:00)
[2023-03-20] MEDS: ESCITALOPRAM OXALATE (10 MG) 10 MG TABLET PO SCH (09:00)
[2023-03-20] MEDS: METFORMIN 500 MG TABLET PO SCH ×3 (09:00→17:00)
[2023-03-20] MEDS: DOCUSATE SODIUM 100 MG CAPSULE PO SCH ×2 (09:00→17:00)
[2023-03-20] MEDS: OLANZAPINE 2.5 MG TABLET PO SCH ×2 (09:00→17:00)
[2023-03-20] MEDS: Z GUARD REMEDY 4 OZ OINT TP SCH ×2 (10:16→17:43)
[2023-03-20] MEDS: CLONIDINE HCL 0.2MG/24H PTWK 1 EA PATCH TD SCH (13:52)
[2023-03-20 16:00] VITALS: BP 147/81; TEMP 99; O2SAT 96
[2023-03-20 20:58] VITALS: BP 137/80; TEMP 99; O2SAT 97
[2023-03-20 21:20] VITALS: BP 125/68; TEMP 97.7; O2SAT 96
[2023-03-21 08:00] VITALS: BP 141/94; TEMP 97.8; O2SAT 95
[2023-03-21] MEDS: GLUCERNA SHAKE 237 ML CAN PO SCH ×2 (08:40→16:13)
[2023-03-21] MEDS: DOCUSATE SODIUM 100 MG CAPSULE PO SCH ×3 (09:38→17:00)
[2023-03-21] MEDS: CHOLECALCIFEROL 1,000 UNIT TABLET (VIT D3) PO SCH (09:38)
[2023-03-21] MEDS: METFORMIN 500 MG TABLET PO SCH ×4 (09:38→17:00)
[2023-03-21] MEDS: SUCRALFATE 1 G TABLET PO SCH ×3 (09:38→17:00)
[2023-03-21] MEDS: ESCITALOPRAM OXALATE (10 MG) 10 MG TABLET PO SCH (09:39)
[2023-03-21] MEDS: CARVEDILOL 12.5 MG TABLET PO SCH ×2 (09:39→16:05)
[2023-03-21] MEDS: LOSARTAN POTASSIUM 50 MG TABLET PO SCH (09:39)
[2023-03-21] MEDS: APIXABAN 5 MG TABLET PO SCH (09:40)
[2023-03-21] MEDS: OLANZAPINE 2.5 MG TABLET PO SCH ×3 (09:41→17:00)
[2023-03-21] MEDS: Z GUARD REMEDY 4 OZ OINT TP SCH ×3 (09:42→16:14)
[2023-03-21 16:00] VITALS: BP 160/93; TEMP 97.9; O2SAT 97
[2023-03-21] MEDS ORDERED: hydrALAZINE HCL 25 MG TABLET PO PRN (16:00)
[2023-03-21 18:26] VITALS: BP 111/68; TEMP 97; O2SAT 95
[2023-03-21] MEDS ORDERED: IV NS 0.9% 500 ML IV ONE (19:00)
[2023-03-21] MEDS ORDERED: IV NS 0.9% 1,000 ML IV ONE (19:30)
[2023-03-21 19:45] VITALS: BP 104/68; TEMP 98.1; O2SAT 94
[2023-03-21 19:45] LABS: BASOPHILS % (AUTO) 0.3 % (0.0-2.0); EOSINOPHILS # (AUTO) 0.1 K/uL (0.0-0.7); EOSINOPHILS % (AUTO) 0.5 % (0.0-6.0); HEMATOCRIT 40 % (33-45); HEMOGLOBIN 13.5 g/dL (11.5-14.8); LYMPHOCYTES # (AUTO) 0.8 K/uL (0.8-4.8); LYMPHOCYTES % (AUTO) 8.4 % (20.0-44.0); MEAN CORPUSCULAR HEMOGLOBIN 30 PG (26.0-33.0); MEAN CORPUSCULAR HGB CONC 34 g/dl (31.0-36.0); MEAN CORPUSCULAR VOLUME 90 fL (82-100); MONOCYTES % (AUTO) 10.6 % (2.0-12.0); NEUTROPHILS # (AUTO) 7.9 K/uL (1.8-8.9); NEUTROPHILS % (AUTO) 80.2 % (43.0-81.0); PLATELET COUNT (AUTO) 392 K/uL (150-450); RED BLOOD CELL COUNT(AUTO) 4.49 MIL/uL (4.0-5.2); RED CELL DISTRIBUTION WIDTH 15.1 % (11.5-15.0); WHITE BLOOD COUNT (AUTO) 9.8 K/uL (4.3-11.0)
[2023-03-21 20:10] LABS: CALCIUM, SERUM 9.5 mg/dL (8.5-10.1); CREATININE 0.9 mg/dL (0.6-1.3); POTASSIUM 3.9 mmol/L (3.5-5.1)
[2023-03-21 20:18] LABS: ALBUMIN 3.1 g/dL (3.4-5.0); TOTAL PROTEIN, SERUM 6.2 g/dL (6.4-8.2)
[2023-03-22 08:00] VITALS: BP 118/70; TEMP 97.9; O2SAT 100
[2023-03-22] MEDS: SUCRALFATE 1 G TABLET PO SCH (09:03)
[2023-03-22] MEDS: METFORMIN 500 MG TABLET PO SCH (09:04)
[2023-03-22] MEDS: DOCUSATE SODIUM 100 MG CAPSULE PO SCH (09:04)
[2023-03-22] MEDS: CHOLECALCIFEROL 1,000 UNIT TABLET (VIT D3) PO SCH (09:05)
[2023-03-22] MEDS: APIXABAN 5 MG TABLET PO SCH (09:07)
[2023-03-22] MEDS: Z GUARD REMEDY 4 OZ OINT TP SCH ×2 (09:14→11:10)
[2023-03-22] MEDS: OLANZAPINE 2.5 MG TABLET PO SCH (09:19)
[2023-03-22] MEDS: ESCITALOPRAM OXALATE (10 MG) 10 MG TABLET PO SCH (09:26)
[2023-03-22] MEDS: GLUCERNA SHAKE 237 ML CAN PO SCH (11:08)
[2023-03-22 11:09] VITALS: BP 118/70
[2023-03-22] MEDS: LOSARTAN POTASSIUM 50 MG TABLET PO SCH (11:09)
[2023-03-22] MEDS: CARVEDILOL 12.5 MG TABLET PO SCH (11:09)
== END 2023-03-22 12:00 | DRG 881 ==
LOC: GPSOV 18:32 → GPS 03-08 09:48
PROVIDERS: ADMIT Psychiatry & Neurology Psychiatry; ATTEND Internal Medicine
DX: F32.9 Major depressive disorder, single episode, unspecified (principal); F03.92 Unspecified dementia, unspecified severity, with psychotic disturbance; F03.93 Unspecified dementia, unspecified severity, with mood disturbance; F03.94 Unspecified dementia, unspecified severity, with anxiety; N39.0 Urinary tract infection, site not specified; R45.851 Suicidal ideations; E87.1 Hypo-osmolality and hyponatremia; G93.49 Other encephalopathy; E86.9 Volume depletion, unspecified; I25.10 Atherosclerotic heart disease of native coronary artery without angina pectoris; F41.9 Anxiety disorder, unspecified; E11.9 Type 2 diabetes mellitus without complications; I10 Essential (primary) hypertension; I48.91 Unspecified atrial fibrillation; J44.9 Chronic obstructive pulmonary disease, unspecified; Z79.01 Long term (current) use of anticoagulants; Z86.73 Personal history of transient ischemic attack (TIA), and cerebral infarction without residual deficits; Z91.199 Patient's noncompliance with other medical treatment and regimen due to unspecified reason; M81.0 Age-related osteoporosis without current pathological fracture; Z79.899 Other long term (current) drug therapy; Z20.822 Contact with and (suspected) exposure to COVID-19; F29 Unspecified psychosis not due to a substance or known physiological condition; Z73.6 Limitation of activities due to disability; Z79.84 Long term (current) use of oral hypoglycemic drugs
CPT/HCPCS: 36415; 80048-TC; 80053-TC; 80061-TC; 82533; 82962-TC; 83735-TC; 84100-TC; 84443-TC; 84550-TC; 85025-TC; 97110-TC; 97116-TC; 97530-TC; J1630; J7030; J7040